=== PATIENT | female | born 1985 | race Caucasian/White ===

== ENCOUNTER → 2016-12-06 | Outpatient (CLI) | payer OTHER ==
[~2016-12-06] MED LIST: CLON1TAB3 PO; ETONMIS VAGRING; FLUO20CA36 PO; ZOLP5TAB6 PO
== END | disposition home or self-care (01) ==
LOC: C.LAB1850 14:40
PROVIDERS: ATTEND Obstetrics & Gynecology
DX: Z31.41 Encounter for fertility testing (principal)

== ENCOUNTER → 2017-02-08 | Outpatient (CLI) | payer OTHER | END | disposition home or self-care (01) | LOC: C.LAB 09:25 | PROVIDERS: ATTEND Obstetrics & Gynecology | DX: Z32.00 Encounter for pregnancy test, result unknown (principal) ==

== ENCOUNTER → 2017-02-12 | Outpatient (CLI) | payer OTHER | END | disposition home or self-care (01) | LOC: C.LABBC 10:09 | PROVIDERS: ATTEND Obstetrics & Gynecology | DX: O09.01 Supervision of pregnancy with history of infertility, first trimester (principal); Z3A.00 Weeks of gestation of pregnancy not specified ==

== ENCOUNTER → 2017-02-27 | Outpatient (CLI) | payer OTHER | END | disposition home or self-care (01) | LOC: C.LAB1850 16:22 | PROVIDERS: ATTEND Obstetrics & Gynecology | DX: O09.01 Supervision of pregnancy with history of infertility, first trimester (principal); O20.9 Hemorrhage in early pregnancy, unspecified ==

== ENCOUNTER → 2017-03-04 | Outpatient (CLI) | payer OTHER ==
[2017-03-04 16:40] LABS: URINE APPEARANCE CLEAR (CLEAR); URINE BILIRUBIN NEG (NEG); URINE COLOR YELLOW; URINE NITRITE NEG (NEG); URINE SPECIFIC GRAVITY 1.007 (1.000-1.030); UROBILINOGEN NEG (NEG)
[2017-03-04 16:44] LABS: MANUAL MICROSCOPIC REQUIRED? NO; REVIEW REQ? NO
== END | disposition home or self-care (01) ==
LOC: C.LABSPEC 15:40
PROVIDERS: ATTEND Obstetrics & Gynecology
DX: O09.01 Supervision of pregnancy with history of infertility, first trimester (principal)

== ENCOUNTER → 2017-03-19 | Outpatient (CLI) | payer OTHER ==
[2017-03-19 10:15] LABS: BASO % 0.3 %; BASO ABS # 0.03 K/uL (0-0.2); COMPLETE YES; EOS % 1.6 %; IG% 0.6 %; LYMPH ABS # 2.37 K/uL (1.2-3.4); MEAN CELL VOLUME 89.9 fL (80-100); MEAN CORPUSCULAR HEMOGLOBIN 30.3 pg (25-34); MEAN CORPUSCULAR HGB CONC 33.8 g/dl (32-36); MEAN PLATELET VOLUME 10.5 fL (7.4-10.4); MONO % 5.7 %; NEUT % 67.8 %; PLATELET COUNT 285 K/uL (130-400); RED BLOOD COUNT 4.45 M/uL (4.2-5.4); WHITE BLOOD COUNT 9.87 K/uL (4.8-10.8)
[2017-03-21 02:02] LABS: CHLAMYDIA TRACH RNA*** NOT DETECTED (NOT DETECTED); GC (NEIS GONORRHOEAE)RNA** NOT DETECTED (NOT DETECTED)
== END | disposition home or self-care (01) ==
LOC: C.LAB1850 09:11
PROVIDERS: ATTEND Obstetrics & Gynecology
DX: O09.01 Supervision of pregnancy with history of infertility, first trimester (principal)

== ENCOUNTER → 2017-05-06 | Outpatient (CLI) | payer OTHER ==
[2017-05-06 15:06] LABS: GTGD 50 Grams
== END | disposition home or self-care (01) ==
LOC: C.LAB1850 12:06
PROVIDERS: ATTEND Obstetrics & Gynecology
DX: O09.02 Supervision of pregnancy with history of infertility, second trimester (principal)

== ENCOUNTER → 2017-07-27 | Outpatient (CLI) | payer OTHER ==
[2017-07-27 12:54] LABS: HEMATOCRIT 37.9 % (37-47); HEMOGLOBIN 12.4 g/dL (12.0-16.0)
== END | disposition home or self-care (01) ==
LOC: C.LAB1850 10:05
PROVIDERS: ATTEND Obstetrics & Gynecology
DX: O09.03 Supervision of pregnancy with history of infertility, third trimester (principal)

== ENCOUNTER 2017-09-05 17:10 | Outpatient (CLI) | payer OTHER ==
[~2017-09-05] VITALS: Ht 170.2 cm; Wt 76.4 kg
[2017-09-05 17:47] LABS: BASO % 0.3 %; BASO ABS # 0.03 K/uL (0-0.2); EOS % 2.1 %; EOS ABS # 0.22 K/uL (0-0.5); HEMATOCRIT 35.8 % (37-47); HEMOGLOBIN 11.7 g/dL (12.0-16.0); IG# 0.09 K/uL (0.00-0.02); LYMPH % 22.8 %; LYMPH ABS # 2.43 K/uL (1.2-3.4); MEAN CORPUSCULAR HEMOGLOBIN 28.7 pg (25-34); MEAN CORPUSCULAR HGB CONC 32.7 g/dl (32-36); MEAN PLATELET VOLUME 9.7 fL (7.4-10.4); MONO % 7.7 %; MONO ABS # 0.82 K/uL (0.11-0.59); NEUT % 66.3 %; NEUT ABS # 7.07 K/uL (1.4-6.5); PLATELET COUNT 208 K/uL (130-400); RED CELL DISTRIBUTION WIDTH CV 13.6 % (11.5-14.5); RED CELL DISTRIBUTION WIDTH SD 44.1 fL (36.4-46.3); WHITE BLOOD COUNT 10.66 K/uL (4.8-10.8)
[2017-09-05] MEDS ORDERED: ACET-1256 PO (18:17)
[2017-09-05] MEDS ORDERED: DOXY25TA (18:17)
[2017-09-05] MEDS ORDERED: PRENTAB65 PO (18:17)
[2017-09-05 18:18] LABS: ALBUMIN 2.9 gm/dl (3.4-5.0); ALKALINE PHOSPHATASE 86 U/L (45-117); ALT/SGPT 17 U/L (12-78); AST/SGOT 16 U/L (15-37); BLOOD UREA NITROGEN 12 mg/dl (7-18); CALCIUM 8.9 mg/dl (8.5-10.1); CARBON DIOXIDE 21 mmol/L (21-32); CREATININE 0.47 mg/dl (0.60-1.20); GLUCOSE 77 mg/dl (70-99); POTASSIUM 3.6 mmol/L (3.5-5.1); SODIUM 136 mmol/L (136-145); TOTAL PROTEIN 6.7 gm/dl (6.4-8.2)
[2017-09-05 18:21] VITALS: Ht 170.2 cm; Wt 76.4 kg
== END 2017-09-05 19:05 | disposition home or self-care (01) ==
LOC: C.LD 17:10 → C.OPB 17:10
PROVIDERS: ATTEND Obstetrics & Gynecology
DX: O13.3 Gestational [pregnancy-induced] hypertension without significant proteinuria, third trimester (principal); Z3A.33 33 weeks gestation of pregnancy

== ENCOUNTER → 2017-09-09 | Outpatient (CLI) | payer OTHER ==
[~2017-09-09] MED LIST changes: +ACET-1256 PO; -CLON1TAB3 PO; +DOXY25TA; -ETONMIS VAGRING; -FLUO20CA36 PO; +PRENTAB65 PO; -ZOLP5TAB6 PO
[2017-09-09 12:12] LABS: HEMATOCRIT 35.6 % (37-47); HEMOGLOBIN 11.8 g/dL (12.0-16.0); MEAN CELL VOLUME 89.2 fL (80-100); MEAN CORPUSCULAR HEMOGLOBIN 29.6 pg (25-34); MEAN CORPUSCULAR HGB CONC 33.1 g/dl (32-36); MEAN PLATELET VOLUME 10.9 fL (7.4-10.4); PLATELET COUNT 211 K/uL (130-400); RED CELL DISTRIBUTION WIDTH CV 13.8 % (11.5-14.5); RED CELL DISTRIBUTION WIDTH SD 45.4 fL (36.4-46.3)
[2017-09-09 12:50] LABS: ALT/SGPT 14 U/L (12-78); AST/SGOT 14 U/L (15-37)
== END | disposition home or self-care (01) ==
LOC: C.LAB1850 10:56
PROVIDERS: ATTEND Obstetrics & Gynecology
DX: O13.9 Gestational [pregnancy-induced] hypertension without significant proteinuria, unspecified trimester (principal)

== ENCOUNTER → 2017-09-16 | Outpatient (CLI) | payer OTHER ==
[2017-09-16 12:19] LABS: HEMATOCRIT 38.8 % (37-47); HEMOGLOBIN 12.5 g/dL (12.0-16.0); MEAN CELL VOLUME 88.8 fL (80-100); MEAN CORPUSCULAR HEMOGLOBIN 28.6 pg (25-34); MEAN CORPUSCULAR HGB CONC 32.2 g/dl (32-36); MEAN PLATELET VOLUME 10.6 fL (7.4-10.4); PLATELET COUNT 228 K/uL (130-400); RED CELL DISTRIBUTION WIDTH CV 13.9 % (11.5-14.5); RED CELL DISTRIBUTION WIDTH SD 45.5 fL (36.4-46.3); WHITE BLOOD COUNT 9.15 K/uL (4.8-10.8)
[2017-09-16 12:43] LABS: ALBUMIN 2.8 gm/dl (3.4-5.0); ALKALINE PHOSPHATASE 97 U/L (45-117); ALT/SGPT 13 U/L (12-78); AST/SGOT 13 U/L (15-37); TOTAL PROTEIN 6.8 gm/dl (6.4-8.2)
== END | disposition home or self-care (01) ==
LOC: C.LAB1850 09:34
PROVIDERS: ATTEND Obstetrics & Gynecology
DX: O13.9 Gestational [pregnancy-induced] hypertension without significant proteinuria, unspecified trimester (principal)

== ENCOUNTER → 2017-09-23 | Outpatient (CLI) | payer OTHER ==
[2017-09-23 10:12] LABS: HEMATOCRIT 36.5 % (37-47); HEMOGLOBIN 12.1 g/dL (12.0-16.0); MEAN CORPUSCULAR HEMOGLOBIN 29.2 pg (25-34); MEAN CORPUSCULAR HGB CONC 33.2 g/dl (32-36); MEAN PLATELET VOLUME 10.3 fL (7.4-10.4); PLATELET COUNT 225 K/uL (130-400); RED CELL DISTRIBUTION WIDTH CV 14.1 % (11.5-14.5); RED CELL DISTRIBUTION WIDTH SD 45.7 fL (36.4-46.3); WHITE BLOOD COUNT 9.78 K/uL (4.8-10.8)
[2017-09-23 10:57] LABS: ALBUMIN 2.8 gm/dl (3.4-5.0); ALT/SGPT 15 U/L (12-78); BLOOD UREA NITROGEN 9 mg/dl (7-18); CALCIUM 9.4 mg/dl (8.5-10.1); CARBON DIOXIDE 23 mmol/L (21-32); CREATININE 0.54 mg/dl (0.60-1.20); GLUCOSE 73 mg/dl (70-99); POTASSIUM 4.2 mmol/L (3.5-5.1); SODIUM 139 mmol/L (136-145)
[2017-09-23 11:00] LABS: ALKALINE PHOSPHATASE 105 U/L (45-117); AST/SGOT 14 U/L (15-37); TOTAL PROTEIN 6.9 gm/dl (6.4-8.2)
== END | disposition home or self-care (01) ==
LOC: C.LAB1850 09:28
PROVIDERS: ATTEND Obstetrics & Gynecology
DX: O09.03 Supervision of pregnancy with history of infertility, third trimester (principal); O13.9 Gestational [pregnancy-induced] hypertension without significant proteinuria, unspecified trimester

== ENCOUNTER 2017-09-27 12:46 | Outpatient (CLI) | payer OTHER ==
[~2017-09-27] VITALS: Ht 160 cm; Wt 78.0 kg
[2017-09-27 14:36] VITALS: Ht 160 cm; Wt 78.0 kg
== END 2017-09-27 14:19 | disposition home or self-care (01) ==
LOC: C.OPB 12:46 → C.LD 12:47 → C.OPB 14:19
PROVIDERS: ATTEND Obstetrics & Gynecology
DX: Z34.03 Encounter for supervision of normal first pregnancy, third trimester (principal)

== ENCOUNTER 2017-09-29 18:47 | Outpatient (CLI) | payer OTHER | END 2017-09-29 19:43 | disposition home or self-care (01) | LOC: C.LD 18:47 → C.OPB 18:47 | PROVIDERS: ATTEND Obstetrics & Gynecology | DX: O13.3 Gestational [pregnancy-induced] hypertension without significant proteinuria, third trimester (principal); Z3A.37 37 weeks gestation of pregnancy ==

== ENCOUNTER 2017-09-30 07:31 | Inpatient (IN) | payer OTHER ==
[~2017-09-30] VITALS: Ht 170.2 cm; Wt 78.0 kg
[2017-09-30] MEDS ORDERED: LACTATED RINGER'S 1000ML 1,000 ML IV PRN (08:05)
[2017-09-30] MEDS ORDERED: LACTATED RINGER'S 1000ML 500 ML IV PRN ×2 (08:05→11:23)
[2017-09-30] MEDS ORDERED: LACTATED RINGER'S 1000ML 1,000 ML IV SCH (08:05)
[2017-09-30] MEDS ORDERED: OXYTOCIN 30 UNITS/500ML NSS IV PRN ×2 (08:15→12:00)
[2017-09-30 08:27] LABS: HEMOGLOBIN 11.5 g/dL (12.0-16.0); MEAN CELL VOLUME 86.4 fL (80-100); MEAN CORPUSCULAR HEMOGLOBIN 28.4 pg (25-34); MEAN CORPUSCULAR HGB CONC 32.9 g/dl (32-36); MEAN PLATELET VOLUME 10.1 fL (7.4-10.4); PLATELET COUNT 210 K/uL (130-400); RED CELL DISTRIBUTION WIDTH CV 14.2 % (11.5-14.5); RED CELL DISTRIBUTION WIDTH SD 44.7 fL (36.4-46.3); WHITE BLOOD COUNT 9.66 K/uL (4.8-10.8)
[2017-09-30 08:44] LABS: ALBUMIN 2.7 gm/dl (3.4-5.0); ALT/SGPT 14 U/L (12-78); BLOOD UREA NITROGEN 10 mg/dl (7-18); CALCIUM 8.7 mg/dl (8.5-10.1); CARBON DIOXIDE 19 mmol/L (21-32); CREATININE 0.66 mg/dl (0.60-1.20); GLUCOSE 106 mg/dl (70-99); POTASSIUM 3.4 mmol/L (3.5-5.1); SODIUM 138 mmol/L (136-145)
[2017-09-30 08:47] LABS: ALKALINE PHOSPHATASE 107 U/L (45-117); AST/SGOT 14 U/L (15-37); TOTAL PROTEIN 6.4 gm/dl (6.4-8.2)
[2017-09-30 08:48] VITALS: Ht 170.2 cm; Wt 78.0 kg
[2017-09-30] MEDS ORDERED: FENTANYL CITRATE INJ 50 MCG/1 ML 2 ML VIAL ONE (10:36)
[2017-09-30] MEDS ORDERED: FENTANYL 2MCG/ML ROPIV 1.25MG/ML 100ML BAG EPI ONE (10:36)
[2017-09-30] MEDS ORDERED: EpHEDrine SULFATE INJ 50 MG/ML AMP ONE (10:36)
[2017-09-30] MEDS ORDERED: BUPIVACAINE 0.25% 30 ML VIAL ONE (10:36)
[2017-09-30] MEDS ORDERED: NALOXONE HCL INJ 1 MG in SODIUM CHLORIDE 0.9% 1000ML 1,000 ML IV PRN (11:23)
[2017-09-30] MEDS ORDERED: DiphenhydrAMINE HCL 50 MG/ML VIAL IV PRN (11:30)
[2017-09-30] MEDS ORDERED: ONDANSETRON INJ 2 MG/ML 2 ML VIAL IV PRN (11:30)
[2017-09-30] MEDS ORDERED: NALOXONE HCL INJ 0.4 MG/1 ML VIAL/CARP IV PRN (11:30)
[2017-09-30] MEDS ORDERED: EpHEDrine SULFATE INJ 50 MG/ML AMP IV PRN (11:30)
[2017-09-30] MEDS ORDERED: NALBUPHINE HCL INJ 10 MG/ML AMP IV PRN (11:30)
[2017-09-30] MEDS ORDERED: FENTANYL 2MCG/ML ROPIV 1.25MG/ML 100ML BAG EPI PRN (11:30)
[2017-09-30] MEDS ORDERED: BENZOCAINE 20% AER SPR 82.5 GM CAN EXT PRN (12:00)
[2017-09-30] MEDS ORDERED: HYDROCORTISONE ACETATE 25 MG SUPP PR PRN (12:00)
[2017-09-30] MEDS ORDERED: LANOLIN OINT EXT PRN (12:00)
[2017-09-30] MEDS ORDERED: SUPERCREAM 0.870 % 15GM JAR EXT PRN (12:00)
[2017-09-30] MEDS ORDERED: ACETAMINOPHEN/CODEINE 300/30MG TAB PO PRN ×2 (12:00)
--- NOTE | 2017-09-30 12:08 | DELIVERY SUMMARY ---
DATE OF OPERATION: 09/30/2017 The patient dilated to complete and pushed to deliver a viable female infant, Apgars 8 and 9 via over second degree perineal laceration. Mouth and nose were bulb suctioned at the perineum. Shoulders and body were delivered with ease. The infant was vigorous and crying at . Cord was clamped at 30 seconds of life and infant placed in the maternal abdomen where the cord was then doubly clamped and cut. Placenta was delivered spontaneously and intact, 3-vessel cord. Hemostasis achieved with dilute Pitocin and uterine massage. Cervix and sulci intact. Laceration repaired in usual fashion using 3-0 Vicryl. Mother and baby stable in recovery. EBL 300 mL. I attest to the content of the Intraoperative Record and any orders documented therein. Any exception s are noted below.
[2017-09-30] MEDS ORDERED: OXYTOCIN INJ 20 UNITS in LACTATED RINGER'S 1000ML 1,000 ML IV SCH (12:30)
--- NOTE | 2017-09-30 14:59 | Anesthesia Procedure Note ---
Anesthesia Epidural Removal Nt Date & Time Sep 30, 2017 at 14:58 Vital Signs Pain Intensity: 2 Notes Mental Status: alert / awake / arousable, participated in evaluation Nausea / Vomiting: adequately controlled Pain: adequately controlled Airway Patency, RR, SpO2: stable & adequate BP & HR: stable & adequate Hydration State: stable & adequate Neuraxial Anesthesia: was administered Anesthetic Complications: no major complications apparent, pt satisfied with anesthetic care Epidural: removed without complications, with tip intact
[2017-09-30 15:00] VITALS: BP 126/89; PULSE 97; TEMP 37.6
[2017-09-30] MEDS: IBUPROFEN 600 MG TAB PO PRN ×3 (15:26→23:55)
[2017-09-30 19:05] VITALS: BP 128/80; PULSE 95; TEMP 37.3
[2017-09-30] MEDS: DOCUSATE SODIUM 100 MG CAP PO SCH (19:16)
[2017-10-01 00:01] VITALS: BP 121/84; PULSE 87; TEMP 36.7
[2017-10-01 04:45] VITALS: BP 116/79; PULSE 77; TEMP 36.7
[2017-10-01] MEDS: IBUPROFEN 600 MG TAB PO PRN ×4 (05:01→22:27)
--- NOTE | 2017-10-01 06:56 | Progress Note ---
Subjective Oct 01, 2017. Subjective conversation w/ patient, conversation w/ family, physical exam, chart review, lab review Ambulation: ambulating normally Voiding: no voiding problems Passing Gas: Yes Diet Tolerance: Regular Diet Lochia: Moderate Feeding Type: Breast Feeding Review of Systems Constitutional: No fever, No chills Respiratory: No cough, No shortness of breath Cardiac: No chest pain Abdomen: No pain, No nausea, No vomiting Female : No dysuria Objective Vital Signs Date Time Temp Pulse Resp B/P (MAP) Pulse Ox O2 Delivery O2 Flow Rate FiO2 10/01/17 04:45 36.7 77 20 116/79 (91) Room Air 10/01/17 00:01 36.7 87 20 121/84 (96) Room Air 10/01/17 00:01 Room Air 09/30/17 19:05 37.3 95 18 128/80 (96) Room Air 09/30/17 15:00 Room Air 09/30/17 15:00 37.6 97 18 126/89 (101) Room Air Physical Exam General Appearance: WELL-APPEARING, WD/WN, NO APPARENT DISTRESS Respiratory/Chest: lungs clear, no respiratory distress Cardiovascular: regular rate, rhythm, no murmur Abdomen: non tender, soft Fundus: Firm, Relation to Umbilicus (1cm below ) Extremities: non-tender, normal inspection Laboratory Results Last 24 Hours Test 09/30/17 08:14 10/01/17 04:44 White Blood Count 9.66 K/uL Red Blood Count 4.05 M/uL Hemoglobin 11.5 g/dL Hematocrit 35.0 % Mean Corpuscular Volume 86.4 fL Mean Corpuscular Hemoglobin 28.4 pg Mean Corpuscular Hemoglobin Concent 32.9 g/dl RDW Standard Deviation 44.7 fL RDW Coefficient of Variation 14.2 % Platelet Count 210 K/uL Mean Platelet Volume 10.1 fL Sodium Level 138 mmol/L Potassium Level 3.4 mmol/L Chloride Level 108 mmol/L Carbon Dioxide Level 19 mmol/L Anion Gap 12.0 mmol/L Blood Urea Nitrogen 10 mg/dl Creatinine 0.66 mg/dl Estimated GFR () 136.4 Estimated GFR (Non- 117.7 BUN/Creatinine Ratio 15.2 Random Glucose 106 mg/dl Calcium Level 8.7 mg/dl Total Bilirubin 0.2 mg/dl Aspartate Amino Transf (AST/SGOT) 14 U/L Alanine Aminotransferase (ALT/SGPT) 14 U/L Alkaline Phosphatase 107 U/L Total Protein 6.4 gm/dl Albumin 2.7 gm/dl Globulin 3.7 gm/dl Albumin/Globulin Ratio 0.7 Medications Current Inpatient Medications Medications (Trade) Dose Ordered Sig/Megan Route Start Time Stop Time Status Last Admin Dose Admin Oxytocin (Pitocin IV) 30 units UD PRN IV 09/30/17 12:00 10/30/17 11:59 Benzocaine (Dermoplast Aero Spr) 1 appln PRN PRN EXT 09/30/17 12:00 10/30/17 11:59 09/30/17 16:59 1 APPLN Cocaine HCl (Supercream 0.870% Cr) BID PRN EXT 09/30/17 12:00 10/14/17 11:59 Hydrocortisone Acetate (Anusol Hc Supp) 25 mg BID PRN SD 09/30/17 12:00 10/30/17 11:59 Lanolin (Lanolin Oint) PRN PRN EXT 09/30/17 12:00 10/30/17 11:59 Prenat Multivit/ Electromyographic Technician/Iron/Folic Ac ( Vitamin Tab) 1 tab DAILY PO 10/01/17 08:00 10/31/17 07:59 Ibuprofen (Motrin Tab) 600 mg Q4H PRN PO 09/30/17 12:00 10/30/17 11:59 10/01/17 05:01 600 MG Acetaminophen (Tylenol Tab) 650 mg Q6H PRN PO 09/30/17 12:00 10/30/17 11:59 Acetaminophen/ Codeine Phosphate (Tylenol w/ Codeine #3 Tab) 1 tab Q4H PRN PO 09/30/17 12:00 10/30/17 11:59 Acetaminophen/ Codeine Phosphate (Tylenol w/ Codeine #3 Tab) 2 tab Q4H PRN PO 09/30/17 12:00 10/30/17 11:59 Docusate Sodium (coLACE CAP) 100 mg BID PO 09/30/17 20:00 10/30/17 19:59 09/30/17 19:16 100 MG Assessment and Plan Post- Day#: 1 Continue Routine Care: 32 F, , A+/GBS-/RI, h/o gestational HTN, PPD1. Vitals reviewed, WNL. Patient is doing clinically well. No signs or sx of anemia. Plan; 1. Recovery from vaginal delivery; cont pp care; ambulate, encourage BF, monitor lochia, control pain Resident Physician Supervision Note: I was present with Dr. Greene during the history and exam. I discussed the case with the resident and agree with the findings and plan as documented in the note. Any exceptions or clarifications are listed here: Doing well. Routine care. Bps are normal. Documented By: Ness Olvera
[2017-10-01 07:18] VITALS: BP 99/79; PULSE 76; TEMP 37
[2017-10-01] MEDS: DOCUSATE SODIUM 100 MG CAP PO SCH ×2 (08:24→19:34)
[2017-10-01] MEDS: PRENATAL VITAMIN TAB PO SCH (08:24)
[2017-10-01 09:08] LABS: HEMATOCRIT 29.5 % (37-47); HEMOGLOBIN 9.7 g/dL (12.0-16.0)
[2017-10-01 11:10] VITALS: BP 134/84; PULSE 92; TEMP 37.1; O2SAT 97
[2017-10-01] MEDS: ACETAMINOPHEN 325 MG TAB PO PRN ×2 (12:24→19:37)
[2017-10-01 15:45] VITALS: BP 127/89; PULSE 92; TEMP 37
[2017-10-01 23:25] VITALS: BP 116/72; PULSE 82; TEMP 36.8
[2017-10-02] MEDS: IBUPROFEN 600 MG TAB PO PRN ×2 (04:56→10:53)
--- NOTE | 2017-10-02 06:09 | Discharge Instructions ---
Discharge Instructions Date of Service Oct 02, 2017. Admission Reason for Admission: Induction Discharge Discharge Diagnosis / Problem: vaginal delivery Discharge Goals Goal(s): Routine recovery after delivery Medications Continue Dispensed Medications: supercream, dermaplast, tucks, lansinoh Activity Recommendations Activity Limitations: per Instructions/Follow-up section . Instructions / Follow-Up Instructions / Follow-Up ACTIVITY RECOMMENDATIONS: * Gradual return to full activity over the next 2-3 weeks. * No lifting - nothing heavier than baby over the next 2-3 weeks. * Do not engage in vigorous exercise, sexual activity or sports until cleared by your physician. * Do not drive or operate any motorized equipment until cleared by your physician. * You may shower/bathe daily. MEDICATIONS: For discomfort or pain, you may use Acetaminophen (Tylenol), Ibuprofen (Advil), or Naproxen (Aleve) following the package directions. For constipation you may use Colace following the package directions. BREAST CARE: If you are not breast feeding: * Wear a supportive bra 24 hours a day for one to two weeks. * Avoid stimulating your breasts and nipples as much as possible during the first few weeks after delivery. * When taking a shower, have the warm water hit your back, not breasts. * When your breasts feel full, apply ice packs. Usually three to four times a day helps ease the discomfort. * Take a mild pain medication (Tylenol / Motrin) when you are uncomfortable. If breast feeding: * Use breast milk to lubricate nipples. Lansinoh cream may be used for sore nipples. You do not need to remove cream prior to breast feeding. If using a different brand of cream, check the label for directions regarding removal of cream prior to nursing. * Wear a supportive bra. * If having problems with breasts or breast feeding, call a distributed energy systems consultant or your health care provider. EPISIOTOMY CARE: After delivery, if you have an episiotomy (stitches), the following steps will ease discomfort and aid healing. * For the first 24 hours after delivery, place ice packs next to your episiotomy to help reduce swelling. * After the first 24 hour-period, sitz baths, either portable or in the tub, are suggested. A shower with a shower arm sprayed over the episiotomy may be comforting. * Jolie care should be done after each voiding and bowel movement. Squirt warm water from a plastic bottle over the perineum (region of the body between the anus and urinary opening) and pat dry. * Use Dermoplast to ease discomfort. Shake container. [place] directly over the episiotomy. Place a Tucks on a clean sanitary pad next to your episiotomy. SPECIAL CARE INSTRUCTIONS: When you are discharged from the hospital, it is important for you to follow the instructions listed below: * During the first week at home, you should be able to care for yourself and your baby. In addition, the usual light household activities are encouraged. * Limit your activities to the way you feel. Do not try to clean the house or move furniture. Be sensible. * If you actively engage in sports and have done so up until the time of your delivery, you may resume these activities as soon as you feel able. This may take up to one month or even longer. Use good judgment. * Continue to take your vitamins for at least six weeks after the of your baby. * Your diet need not be limited unless you were on a special diet before your delivery. Breast-feeding mothers need around 2500 calories per day and at least 64-80 ounces of fluid per day (8 to 10 glasses). * You should eat foods from the four major food groups. Crash diets or fad diets are to be avoided. Eating lean meats, fresh fruits and vegetables, low-fat dairy products, high fiber foods and a regular exercise program, will help you get back to your pre- weight without putting your health at risk. * Constipation is sometimes a problem after delivery. Take a mild laxative as needed. If breast feeding, Milk of Magnesia is acceptable to use. You may use a suppository or Fleets enema if no episiotomy. * A daily shower or tub bath is suggested. Be sure to thoroughly and gently dry the perineum. * A bloody vaginal discharge will usually continue until around four weeks post . A small amount of bleeding may continue for as long as six weeks. Vaginal discharge changes from the bright red bleeding after delivery to pink then brownish and finally yellowish-pink before becoming white and disappearing. * Bleeding may increase with activity. Your first period may come in 4-8 weeks. If you are breast feeding, your period may be delayed even longer. * Dewy Rose (sex) can begin whenever both you and your partner feel comfortable and do not have any form of genital infection. It is recommended that you wait at least six weeks for internal and external healing to occur. If you have questions, please talk to your health care practitioner. A condom should be used to prevent infection and . * Foreplay, gentle intercourse and lubrication is very important the first several times to prevent pain. A water-based lubricant such as K-Y jelly or Astroglide may be used. * If you have RH negative blood and your baby is RH positive, you will receive RHOGAM by injection prior to discharge. The nurse will give you a card to keep with you that has the date and place that you received RHOGAM after delivery. * During your care, you had a Rubella screen done to check for the presence of rubella antibodies in your blood. If your test was negative, you will receive a Rubella vaccine prior to discharge. This vaccine may cause a fever, soreness at the injection site and flu-like symptoms. If these symptoms persist, notify your health care practitioner. is not advised for one month after a Rubella vaccine. * Verbalizes understanding of car seat law as reviewed with patient nursing. * Car Seat hand-out given and reviewed with patient by nursing. * Shaken baby information reviewed with patient by nursing. Call you doctor if: * Heavy bleeding (saturating several pads an hour) or passing clots the size of your fist. * A fever >101 degrees F (38.3 degrees C) on two occasions four hours apart and /or chills. * Unusual pain in the pelvic or vaginal areas. * "Baby Blues" lasting longer than two weeks. If you have any questions or concerns, call your health care practitioner at . FOLLOW UP VISIT: * Please call the office at to schedule a 6 week examination. It is important you keep this appointment. It is important for you to make arrangements for either yearly or twice yearly check-ups thereafter. Current Hospital Diet Patient's current hospital diet: Regular Diet Discharge Diet Recommended Diet: Regular Diet, Regular OB Diet Pending Studies Studies pending at discharge: no Medical Emergencies . Who to Call and When: Medical Emergencies: If at any time you feel your situation is an emergency, please call 911 immediately. . Non-Emergent Contact Non-Emergency issues call your: Primary Care Provider, Product Safety Administrator . . "Provider Documentation" section prepared by Anders Greene. .
--- NOTE | 2017-10-02 06:41 | Progress Note ---
Subjective Oct 02, 2017. Subjective conversation w/ patient, conversation w/ family, physical exam, chart review, lab review Ambulation: ambulating normally Voiding: no voiding problems Passing Gas: Yes Diet Tolerance: Regular Diet Lochia: Small Feeding Type: Breast Feeding (having trouble with breast feeding, supplementing ) Review of Systems Constitutional: No fever, No chills Respiratory: No cough, No shortness of breath Cardiac: No chest pain Abdomen: No pain, No nausea, No vomiting Female : No dysuria Objective Vital Signs Date Time Temp Pulse Resp B/P (MAP) Pulse Ox O2 Delivery O2 Flow Rate FiO2 10/01/17 23:25 Room Air 10/01/17 23:25 36.8 82 18 116/72 (87) Room Air 10/01/17 15:45 Room Air 10/01/17 15:45 37.0 92 16 127/89 (102) Room Air 10/01/17 11:10 37.1 92 18 134/84 (101) 97 Room Air 10/01/17 08:44 Room Air 10/01/17 07:55 Room Air 10/01/17 07:18 37.0 76 16 99/79 (86) Room Air Physical Exam General Appearance: WELL-APPEARING, WD/WN, NO APPARENT DISTRESS Respiratory/Chest: lungs clear, no respiratory distress Cardiovascular: regular rate, rhythm, no murmur Abdomen: non tender, soft Fundus: Firm, Relation to Umbilicus (2cm below u) Extremities: non-tender, normal inspection Laboratory Results Last 24 Hours Test 10/01/17 08:19 10/02/17 04:44 Hemoglobin 9.7 g/dL Hematocrit 29.5 % Medications Current Inpatient Medications Medications (Trade) Dose Ordered Sig/Megan Route Start Time Stop Time Status Last Admin Dose Admin Oxytocin (Pitocin IV) 30 units UD PRN IV 09/30/17 12:00 10/30/17 11:59 Benzocaine (Dermoplast Aero Spr) 1 appln PRN PRN EXT 09/30/17 12:00 10/30/17 11:59 09/30/17 16:59 1 APPLN Cocaine HCl (Supercream 0.870% Cr) BID PRN EXT 09/30/17 12:00 10/14/17 11:59 Hydrocortisone Acetate (Anusol Hc Supp) 25 mg BID PRN [place] 09/30/17 12:00 10/30/17 11:59 Lanolin (Lanolin Oint) PRN PRN EXT 09/30/17 12:00 10/30/17 11:59 Prenat Multivit/ Metal Fabricating Inspector/Iron/Folic Ac ( Vitamin Tab) 1 tab DAILY PO 10/01/17 08:00 10/31/17 07:59 10/01/17 08:24 1 TAB Ibuprofen (Motrin Tab) 600 mg Q4H PRN PO 09/30/17 12:00 10/30/17 11:59 10/02/17 04:56 600 MG Acetaminophen (Tylenol Tab) 650 mg Q6H PRN PO 09/30/17 12:00 10/30/17 11:59 10/01/17 19:37 650 MG Acetaminophen/ Codeine Phosphate (Tylenol w/ Codeine #3 Tab) 1 tab Q4H PRN PO 09/30/17 12:00 10/30/17 11:59 Acetaminophen/ Codeine Phosphate (Tylenol w/ Codeine #3 Tab) 2 tab Q4H PRN PO 09/30/17 12:00 10/30/17 11:59 Docusate Sodium (coLACE CAP) 100 mg BID PO 09/30/17 20:00 10/30/17 19:59 10/01/17 19:34 100 MG Assessment and Plan Post- Day#: 2 Continue Routine Care: Resident Physician Supervision Note: I interviewed and examined the patient. Discussed with Dr. Greene and agree with findings and plan as documented in the note. Any exceptions or clarifications are listed here: [None] Documented By: Shahnaz Bro Thuy 32 F, , A+/GBS-/RI, h/o gestational HTN, PPD2. Vitals reviewed, WNL. Patient is doing clinically well. No signs or sx of anemia. Plan; 1. Recovery from vaginal delivery; cont pp care; ambulate, encourage BF, monitor lochia, control pain 2. Discussed discharge planning
[2017-10-02] MEDS: PRENATAL VITAMIN TAB PO SCH (08:29)
[2017-10-02] MEDS: DOCUSATE SODIUM 100 MG CAP PO SCH (08:29)
[2017-10-02] MEDS: ACETAMINOPHEN 325 MG TAB PO PRN (08:34)
[2017-10-02 08:35] VITALS: BP 125/87; PULSE 90; TEMP 37; O2SAT 97
[2017-10-02 08:37] LABS: HEMATOCRIT 29.5 % (37-47); HEMOGLOBIN 9.5 g/dL (12.0-16.0); MEAN CELL VOLUME 87.3 fL (80-100); MEAN CORPUSCULAR HEMOGLOBIN 28.1 pg (25-34); MEAN CORPUSCULAR HGB CONC 32.2 g/dl (32-36); MEAN PLATELET VOLUME 9.8 fL (7.4-10.4); PLATELET COUNT 183 K/uL (130-400); RED CELL DISTRIBUTION WIDTH CV 14.4 % (11.5-14.5); RED CELL DISTRIBUTION WIDTH SD 45.6 fL (36.4-46.3); WHITE BLOOD COUNT 9.21 K/uL (4.8-10.8)
[2017-10-02 11:40] VITALS: BP_DIAS 87; PULSE 90; TEMP 37
== END 2017-10-02 13:00 | disposition home or self-care (01) | DRG 775 ==
LOC: C.LD 07:31 → EDSTATUS 15:28 → C.OBG 16:36
PROVIDERS: ADMIT Obstetrics & Gynecology; ATTEND Obstetrics & Gynecology
PROC: 3E033VJ Introduction of Other Hormone into Peripheral Vein, Percutaneous Approach (ICD-10-PCS; principal; 2017-09-30)
PROC: 10E0XZZ Delivery of Products of Conception, External Approach (ICD-10-PCS; principal; 2017-09-30)
PROC: 0KQM0ZZ Repair Perineum Muscle, Open Approach (ICD-10-PCS; principal; 2017-09-30)
DX: O13.4 Gestational [pregnancy-induced] hypertension without significant proteinuria, complicating childbirth (principal); O70.1 Second degree perineal laceration during delivery; Z3A.37 37 weeks gestation of pregnancy; Z37.0 Single live birth

== ENCOUNTER → 2017-10-31 | Outpatient (CLI) | payer OTHER | END | disposition home or self-care (01) | LOC: C.LABSPEC 11:07 | PROVIDERS: ATTEND Obstetrics & Gynecology | DX: R39.9 Unspecified symptoms and signs involving the genitourinary system (principal) ==

== ENCOUNTER 2021-05-23 12:04 | Inpatient (IN) ==
--- NOTE | 2021-05-23 12:40 | Obstetrical Progress Note ---
Date of Service May 23, 2021 Assessment & Plan (1) Encounter for supervision of normal in multigravida: (2) History of gestational hypertension: Plan: 35 y/o presents for r/o labor BPs initially elevated, suspect due to pain but given hx will obtain labs as asymptomatic otherwise Fetus cat 1 Labor - small amt cervical change from this AM, will ambulate and recheck GBS neg Subjective 35 y/o at 39 3/7 wga w/ JUSTIN 12/4 presents w/ c/o ctx. Seen in clinic this AM for TOM, noted q4-7min ctx and got membranes stripped. Since then, ctx have worsened. +FM, denies LOF. Notes some blood with wiping just now in toilet but none otherwise PNI: Hx gHTN Echogenic bowel on our anatomy but resolved at [facility] Conceived on Letrozole Physical Exam Genitourinary: Manual OB Exam: + cervical dilation (3-4), + cervical effacement 70% and + station -2 OB Exam Monitor Tracing: + external FHT monitor used, + external uterine monitor used (q4) and + category I (125/mod/+accel/-decel) Results & Data ([facility]) Vital Signs (Past 12 Hours) Vital Signs Pulse BP 05/23/21 12:23 107 H 142/92 H 05/23/21 12:11 111 H 147/97 H PG Care Time/CCT Total # of Minutes Spent Total Time Spent with Patient: Total time spent is greater than 50% in coordination of care (as documented) at patient's floor/unit and/or counseling patient: Coding Level of Care Code None Diagnoses Encounter for supervision of normal in multigravida Z34.80 History of gestational hypertension Z87.59
[2021-05-23 12:52] LABS: Basophils # (auto) 0.04 K/uL (0-0.2); Basophils % (auto) 0.3 %; Eosinophils # (auto) 0.06 K/uL (0-0.5); Eosinophils % (auto) 0.4 %; Hematocrit (blood only) 39.4 % (37-47); Hemoglobin 13.2 g/dL (12.0-16.0); Immature Granulocytes # (auto) 0.15 K/uL (0.00-0.02); Immature Granulocytes % (auto) 1.1 %; Lymphocytes # (auto) 1.96 K/uL (1.2-3.4); Lymphocytes % (auto) 14.5 %; Mean Corpuscular Hemoglobin 30.2 pg (25-34); Mean Corpuscular Hgb Conc 33.5 g/dL (32-36); Mean Corpuscular Volume 90.2 fL (80-100); Mean Platelet Volume 10.5 fL (7.4-10.4); Monocytes # (auto) 0.66 K/uL (0.11-0.59); Monocytes % (auto) 4.9 %; Neutrophils # (auto) 10.61 K/uL (1.4-6.5); Neutrophils % (auto) 78.8 %; Platelet Count 202 K/uL (130-400); RDW Standard Deviation 46.5 fL (36.4-46.3); Red Blood Count 4.37 M/uL (4.2-5.4); White Blood Count 13.48 K/uL (4.8-10.8)
[2021-05-23 13:19] LABS: Alanine Aminotransferase 15 U/L (12-78); Albumin Level 3.1 gm/dl (3.4-5.0); Aspartate Aminotransferase 10 U/L (15-37); BUN Creatinine Ratio 15.8 (10-20); Blood Urea Nitrogen 6 mg/dl (7-18); Calcium 9.1 mg/dl (8.5-10.1); Carbon Dioxide 17 mmol/L (21-32); Chloride 110 mmol/L (98-107); Creatinine Clr Calc Pharmacy 196.3 ml/min; Est GFR (African American) > 150.0 ml/min; Est GFR (Non-African American) 135.9 ml/min; Glucose 77 mg/dl (70-99); Potassium 3.6 mmol/L (3.5-5.1); Sodium 138 mmol/L (136-145)
[2021-05-23 13:22] LABS: Albumin Globulin Ratio 0.7 (0.9-2); Alkaline Phosphatase 116 U/L (45-117); Bilirubin,Total 0.3 mg/dl (0.2-1); Globulin 4.2 gm/dl (2.5-4.0); Total Protein 7.3 gm/dl (6.4-8.2)
[2021-05-23] MEDS ORDERED: OXYTOCIN 10 UNITS/ML VIAL ONE (14:20)
[2021-05-23] MEDS ORDERED: LIDOCAINE 1% LOCAL 20 ML VIAL ONE (14:27)
[2021-05-23] MEDS ORDERED: LACTATED RINGER'S 1,000 ML IV PRN (14:29)
[2021-05-23] MEDS ORDERED: OXYTOCIN 30 UNITS/500 ML BAG IV PRN (14:29)
--- NOTE | 2021-05-23 14:51 | History & Physical Report ---
Date of Service May 23, 2021 Assessment & Plan (1) Encounter for supervision of normal in multigravida: Plan: 35 y/o in labor VSS Fetus cat 1 Labor - GBS neg Admission and Anticipated Discharge Date Admission Date: May 23, 2021 History of Present Illness Chief Complaint: Contractions Primary Care Provider: Sheila Joshi, DO 35 y/o at 39 3/7 wga w/ JUSTIN 12/4 presents w/ c/o ctx. Seen in clinic th is AM for TOM, noted q4-7min ctx and got membranes stripped. Since then, ctx have worsened. +FM, denies LOF. 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 , IOL gHTN G2 2020 SAB G3 current irreg cycles Denies hx STIs 10/2020 neg cytology Allergies Allergy/AdvReac Type Severity Reaction Status Date / Time No Known Drug Allergies Allergy Verified 05/23/21 08:47 Home Medications Medication Instructions Recorded Confirmed Type prenat.vits,yohannes,duo-ozap-vfkho 1 tab PO DAILY 02/11/19 05/23/21 History doxylamine-pyridoxine (vit B6) PO 10/28/20 05/23/21 History [Bonjesta] aspirin 81 mg tablet,delayed 81 mg PO DAILY 12/28/20 05/23/21 History release (Aspirin Low Dose) ferrous sulfate PO 03/23/21 05/23/21 History Patient History Medical History (Updated 02/17/21 @ 08:38 by James Park MD) Anxiety Astigmatism Gestational [-induced] hypertension without significant proteinuria, third trimester Mastitis Situational hypertension Varicella Surgical History H/O cervical biopsy H/O oral surgery Family History Sister Anxiety Depression Adela's thyroiditis Father Dementia Mother Hypertension Denies family history of Ovarian cancer Prostate cancer Myocardial infarction Breast cancer Colorectal cancer Social History (Updated 10/28/20 @ 15:15 by Peace Long) Smoking Status: Never smoker Second Hand Exposure: No; Hx Alcohol Use: Yes Hx Substance Use: No Preferred Language: Kyrgyz Visual Impairment: No Limitations Hearing Ability: Normal Multigraph Operator Required: No Beliefs That Will Affect Care: None marital status: marital status details: Johnathon Doran (35) [phone] Current Living Situation: Spouse Current Living Situation Comment: lives with spouse and daughter current occupational status: employed current occupation: [employer]-u[employer] Feels Safe at Home: Yes Safety Concerns: Feels Safe At This Time Dental Care, Regularly: Yes Physical Activity Frequency: Does not Exercise Assistive Devices: None Physical Exam Genitourinary: Manual OB Exam: + cervical dilation (progressed from 4 to 10) OB Exam Monitor Tracing: + external FHT monitor used, + external uterine monitor used (q4) and + category I (120/mod/+accel/-decel) Results & Data ([facility]) Vital Signs (Past 12 Hours) Vital Signs Temp Pulse BP 05/23/21 14:44 87 121/85 05/23/21 12:53 105 H 124/85 05/23/21 12:43 108 H 128/83 05/23/21 12:33 91 H 125/79 05/23/21 12:25 98.4 F 05/23/21 12:23 107 H 142/92 H 05/23/21 12:11 111 H 147/97 H Laboratory Results OB Labs: Blood Type A Positive 11/04/20 Antibody Screen NEGATIVE 11/04/20 Hemoglobin 11.7 g/dL (12.0-16.0) L 03/07/21 Hematocrit 35.6 % (37-47) L 03/07/21 Mean Corpuscular Volume 88.7 fL (80-100) 11/04/20 Platelet Count 261 K/uL (130-400) 11/04/20 Varicella-Zoster IgG Antibody 146.10 index L 08/10/20 Rubella IgG Antibody Immune (Immune) 11/04/20 Rapid Plasma Reagin Nonreactive (Nonreactive) 11/04/20 Hepatitis B Surface Antigen Neg (Neg) 11/04/20 HIV (1&2) Ab and P24 Ag, 4th Gener Neg (Neg) 11/04/20 Glucose 1 Hour 50 gm Load 133 mg/dl (70-130) H 03/07/21 OB Optional Labs: Chlamydia trachomatis RNA NOT DETECTED (NOT DETECTED) 11/04/20 Neisseria gonorrhoeae RNA NOT DETECTED (NOT DETECTED) 11/04/20 Thyroid Stimulating Hormone (TSH) 1.780 uIu/ml (0.300-4.500) 08/10/20 low risk cfdna neg cf/sma Code Status & VTE Plan VTE Prophylaxis Plan VTE Prophylaxis will be ordered: No Coding Level of Care Code None Diagnoses Encounter for supervision of normal in multigravida Z34.80
--- NOTE | 2021-05-23 14:55 | Delivery Summary ---
Vaginal Delivery Summary Date of Service May 23, 2021 Vaginal Delivery Summary and 2nd Degree LAC PREOPERATIVE DIAGNOSIS: 1. Single intrauterine at 39 3/7 wga 2. Labor 3. History of gestational hypertension POSTOPERATIVE DIAGNOSIS: 1. Single intrauterine at 39 3/7 wga 2. Labor 3. History of gestational hypertension 4. Delivered PROCEDURE: 1. Normal spontaneous vaginal delivery. SURGEON: Britt Robles MD ANESTHESIA: None ESTIMATED BLOOD LOSS: 200 mL FLUIDS: Continuous LR. URINE OUTPUT: None. COMPLICATIONS: None. CONDITION: Stable. INDICATIONS: 35 y/o at 39 3/7 wga presented to clinic this morning with contractions and had membranes stripped at 3cm. Afterwards, contractions continued and presented to labor and delivery for evaluation approximately 3 hours later at which time she was 3-4cm. Plan was to macrina her for 1-1.5 hours and recheck however after approximately 1.5 hours she felt the urge to push and was found to be complete with membranes intact. FINDINGS: A viable female infant, weight pending with Apgars of 9 and 9 at 1 and 5 minutes respectively. SPECIMEN: Cord blood OPERATIVE REPORT: The patient progressed to 10 cm, 100% effaced and +2 station, and initially involuntarily pushed over intact perineum without anesthesia and membranes intact to deliver head of viable female infant, weight and Apgars as above. Head of delivered in CHAGO position at which time membranes were ruptured. Nuchal cord was present and delivered through. Body and shoulders then were delivered without difficulty. was delivered to maternal abdomen and nursing staff. Delayed cord clamping was performed for 60 seconds. Cord was clamped and cut. Cord blood was obtained. Placenta delivered spontaneously intact with 3-vessel cord. IM oxytocin and fundal massage were given for excellent hemostasis as IV site had not yet been placed. Vagina, cervix, perineum, and placenta were inspected. A second degree laceration was noted and repaired using 3-0 Vicryl after local anesthesia was applied. Sponge and needle counts correct x2. No sponges were left behind. Mother and stable in immediate period. [facility] [place] Vaginal Delivery Charge Vaginal Delivery Codes: 77574 global code for the antepartum, delivery, and post- Delivery Type Details: and 2nd Degree LAC
[2021-05-23] MEDS ORDERED: DIPHTHERIA/TETANUS/PERTUSSIS 0.5 ML SYR/VIAL IM ONE (15:05)
[2021-05-23] MEDS ORDERED: OXYTOCIN 10 UNITS/ML VIAL IM ONE (15:05)
[2021-05-23] MEDS ORDERED: BENZOCAINE 20% AER SPR 82.5 GM CAN EXT PRN (15:05)
[2021-05-23] MEDS ORDERED: SUPERCREAM 0.870% 15 GM JAR EXT PRN (15:05)
[2021-05-23] MEDS ORDERED: bisacodyL 10 MG SUPP PR PRN (15:05)
[2021-05-23] MEDS ORDERED: HYDROCORTISONE ACETATE 25 MG SUPP PR PRN (15:05)
[2021-05-23] MEDS: IBUPROFEN 600 MG TAB PO PRN ×2 (16:39→21:23)
[2021-05-23] MEDS: ACETAMINOPHEN 325 MG TAB PO PRN (19:39)
[2021-05-23] MEDS: DOCUSATE SODIUM 100 MG CAP PO SCH (21:20)
[2021-05-24] MEDS: ACETAMINOPHEN 325 MG TAB PO PRN ×3 (01:05→16:39)
[2021-05-24] MEDS: IBUPROFEN 600 MG TAB PO PRN ×3 (03:05→13:47)
--- NOTE | 2021-05-24 05:54 | Obstetrical Progress Note ---
Date of Service <Jazmín Rivera MD - Last Filed: 05/24/21 06:32> May 24, 2021 Assessment & Plan <Jazmín Rivera MD - Last Filed: 05/24/21 06:32> (1) Vaginal delivery: 35 yo , complicated by gHTN, now PPD1 from at 39wk3d -May d/c home today if improves -Vitals reviewed- HDS, afebrile -Blood type A+, GBS-, Rubella immune -Encourage ambulation -Pain control with ibuprofen, acetaminophen PRN -F/u in 6 weeks with OB <Britt Robles MD - Last Filed: 05/24/21 08:43> (1) Vaginal delivery: Subjective <Jazmín Rivera MD - Last Filed: 05/24/21 06:32> Ambulation: ambulating normally Voiding: no voiding problems Passing Gas:: No Diet Tolerance:: regular diet Lochia:: Moderate Feeding Type:: breast feeding Current Pain Level(1-10): 0 Pt feels well overall, no acute complaints or distress. Report some soreness relieved by pain medication. Having some difficulties with latch. Review of Systems Denies fevers/chills. Denies dyspnea, cough. Denies chest pain. Denies breast pain or discharge. Denies dysuria. Denies headache. Denies back pain. Physical Exam <Jazmín Rivera MD - Last Filed: 05/24/21 06:32> General: Alert, oriented, no acute distress Cardiac: Regular rate and rhythm, normal S1, S2. No murmurs appreciated. Respiratory: Clear to auscultation b/l with good air flow entry, symmetric chest rise and fall. No wheezes or crackles. No increased work of breathing or accessory muscle use Abdomen: Soft, nontender, nondistended. Fundus firm and palpable at 1 cm below umbilicus. No guarding or rebound. Skin: No rashes or lesions Extremities: No lower extremity edema, erythema or swelling. Negative Neil's sign b/l. Results & Data ([facility]) <Jazmín Rivera MD - Last Filed: 05/24/21 06:32> Vital Signs (Past 12 Hours) Vital Signs Temp Pulse Resp BP 05/23/21 23:40 36.8 C 65 18 106/70 05/23/21 19:30 37.4 C 79 18 128/81 <Britt Robles MD - Last Filed: 05/24/21 08:43> Co-Signing Physician Notes Resident Physician Supervision Note: I interviewed and examined the patient. Discussed with Dr. Rivera and agree with findings and plan as documented in the note. Any exceptions or clarifications are listed here: PP1 s/p , correction - prior complicated by gHTN, not current. Meeting all milestones. Doing better w/ this time however still some difficulty with latch, if able to latch well today desires dc home but will stay if not Documented By: Britt Robles MD Resident Activity Tracking <Jazmín Rivera MD - Last Filed: 05/24/21 06:32> Resident Involvement: Resident Care Provided Care Provided: OB Delivery
[2021-05-24] MEDS ORDERED: PRENATAL VITAMIN 1 TAB PO SCH (08:00)
[2021-05-24] MEDS: DOCUSATE SODIUM 100 MG CAP PO SCH (08:07)
--- NOTE | 2021-05-24 08:20 | Obstetrical Progress Note ---
Date of Service May 24, 2021 Subjective Ambulation: ambulating normally Voiding: no voiding problems Passing Gas:: Yes Diet Tolerance:: regular diet Lochia:: Small Feeding Type:: breast feeding Current Pain Level(1-10): 0 Pt doing well overall, no acute complaints or distress. Pain well controlled with medication. Review of Systems Denies fever/chills. Denies dyspnea, cough. Denies chest pain. Denies breast pain or discharge. Denies dysuria. Denies headache. Denies back pain. Physical Exam General: Alert, oriented, no acute distress Cardiac: Regular rate and rhythm, normal S1, S2. No murmurs noted. Respiratory: Clear to auscultation b/l with good air flow entry, symmetric chest rise and fall. No wheezes or crackles. No increased work of breathing or accessory muscle use. Abdomen: Soft, nontender, nondistended. Fundus firm and palpable at cm below umbilicus. Surgical incision clean, dry and intact without erythema, warmth or drainage. No guarding or rebound. Skin: No rashes or lesions Extremities: Warm, dry and well-perfused with capillary refill <2s b/l. No lower extremity edema, erythema or swelling. Negative Neil's sign b/l. Results & Data ([facility]) Vital Signs (Past 12 Hours) Vital Signs Temp Pulse Resp BP 05/23/21 23:40 36.8 C 65 18 106/70
[2021-05-24] MEDS ORDERED: bisacodyL 5 MG TABEC PO SCH (20:00)
== END 2021-05-24 18:15 | disposition home or self-care (01) | DRG 807 ==
LOC: OPB 12:04 → 4S1 12:06 → 4S2 17:26

== ENCOUNTER 2021-05-27 13:24 | Observation (INO) ==
[2021-05-27] MEDS ORDERED: LABETALOL HCL IV 5 MG/ML 20ML IV ONE ×2 (14:04→14:15)
[2021-05-27 14:08] LABS: Basophils # (auto) 0.02 K/uL (0-0.2); Basophils % (auto) 0.3 %; Eosinophils # (auto) 0.15 K/uL (0-0.5); Eosinophils % (auto) 2.1 %; Hematocrit (blood only) 36.2 % (37-47); Immature Granulocytes # (auto) 0.16 K/uL (0.00-0.02); Immature Granulocytes % (auto) 2.2 %; Lymphocytes # (auto) 1.66 K/uL (1.2-3.4); Lymphocytes % (auto) 22.9 %; Mean Corpuscular Hemoglobin 30.2 pg (25-34); Mean Platelet Volume 10.2 fL (7.4-10.4); Monocytes % (auto) 4.1 %; Neutrophils # (auto) 4.96 K/uL (1.4-6.5); Neutrophils % (auto) 68.4 %; Platelet Count 250 K/uL (130-400); RDW Coefficient of Variation 13.7 % (11.5-14.5); RDW Standard Deviation 45.2 fL (36.4-46.3); Red Blood Count 3.98 M/uL (4.2-5.4); White Blood Count 7.25 K/uL (4.8-10.8)
[2021-05-27] MEDS ORDERED: LABETALOL HCL IV 5 MG/ML 20ML IV STA (14:19)
--- NOTE | 2021-05-27 14:19 | History & Physical Report ---
Date of Service May 27, 2021 Assessment & Plan (1) Severe preeclampsia: Plan: Presumed severe preeclampsia based on symptoms, BP. Labs pending. Treating with IV antihypertensive now, and Mag to be started. Permission is being sought for FOB and baby to be with her during the now-certain 24 hour hospital stay to facilitate . OK to eat regular diet and can use hat for I/O monitoring at this time. History of Present Illness Chief Complaint: High BP and feeling "off" at home Primary Care Provider: Sheila Joshi, DO 35yo at PPD#4 from [facility]. Patient called the o/c MD with complaint of feeling "off" at home, just a nonspecific feeling of malaise, with some palpitations and chest "flutters" also noted. She had her BP taken at home and was 150s / 90s for two checks. I asked her to come to L&D for evaluation. She was hesitant initially, due to pandemic risks (both possible exposure of herself and if she came in, and discomfort with the knowledge she would not be able to bring her or spouse as visitors into the hospital at this time and this might result in needing to temporarily formula feed). She denied WHITE, RUQ pain, vision changes or increased edema. 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 After rechecking her BP one further time, following 5 minutes of seated rest, she continued to have 150s/100 BP and was willing to come for evaluation. On arrival, initial BP is 187/98. Patient has no change in symptoms. She does not have significant edema. At the time I arrive to the bedside, she is having an IV placed in anticipation of giving 20mg IV labetalol which I have just ordered verbally, so exam was somewhat limited to allow nursing staff access to perform their tasks. Interestingly, the med order displayed as 5mg rather than 20mg when it came over to the nurses, so they started with that dose and then came to me to confirm the remaining amount to be given. After that first 5mg IV, her BP dropped to 128/85, so the remainder was held at this time. Notably, the antecedent was conceived with ART to include letrozole, ovidrel and timed intercourse with SGFC. Bright bowel was seen on one ultrasound but not reproduced on future ultrasounds. Patient did have gestational HTN in a prior but not in this recent one. Allergies Allergy/AdvReac Type Severity Reaction Status Date / Time No Known Drug Allergies Allergy Verified 05/23/21 08:47 Home Medications Medication Instructions Recorded Confirmed Type prenat.vits,yohannes,[id number]-cnpdd 1 tab PO DAILY 02/11/19 05/23/21 History Past Med/Surg History Medical History Anxiety Astigmatism Gestational [-induced] hypertension without significant proteinuria, third trimester Mastitis Situational hypertension Varicella Surgical History H/O cervical biopsy H/O oral surgery Family History Sister Anxiety Depression Adela's thyroiditis Father Dementia Mother Hypertension Denies family history of Ovarian cancer Prostate cancer Myocardial infarction Breast cancer Colorectal cancer Social History Smoking Status: Never smoker Second Hand Exposure: No; Hx Alcohol Use: Yes Hx Substance Use: No Preferred Language: Azeri Visual Impairment: No Limitations Hearing Ability: Normal 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 Beliefs That Will Affect Care: None marital status: marital status details: Johnathon Doran (34) [phone] Current Living Situation: Spouse Current Living Situation Comment: lives with spouse and daughter current occupational status: employed 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 Feels Safe at Home: Yes Dental Care, Regularly: Yes Physical Activity Frequency: Does not Exercise Assistive Devices: None Physical Exam Constitutional: WD/WN, vitals as above Eyes: PERRL, conjunctivae normal, anicteric sclerae ENMT: external ear and nose normal, oropharynx normal Neck: supple Respiratory: normal respiratory effort and able to speak in complete sentences; no respiratory distress Cardiovascular: Rate/Rhythm: regular rate and regular rhythm Gastrointestinal (Abdomen): Gravid / AGA, nontender Musculoskeletal: no cyanosis or clubbing, extremities motor strength 5/5 Skin: no rashes, warm and dry Neurologic: patellar DTR's 2+ bilat, sensation intact Psychiatric: A+Ox3, euthymic affect Lymphatic: no cervical or axillary lymphadenopathy Results & Data Results & Data ([facility]) Vital Signs (Past 12 Hours) Vital Signs Pulse BP 05/27/21 13:53 81 187/98 H 05/27/21 13:36 90 178/107 H Laboratory Results Labs ordered and pending at this time. Code Status & VTE Plan VTE Prophylaxis Plan VTE Prophylaxis will be ordered: Yes PG Care Time/CCT Total # of Minutes Spent Total Time Spent with Patient: Total time spent is greater than 50% in coordination of care (as documented) at patient's floor/unit and/or counseling patient: Coding Level of Care Code 87331 Initial Inpt Care Lvl 2 Diagnoses Severe preeclampsia O14.10
[2021-05-27 14:24] LABS: Alanine Aminotransferase 21 (12-78); Albumin Level 2.9 gm/dl (3.4-5.0); Aspartate Aminotransferase 16 U/L (15-37); BUN Creatinine Ratio 11.4 (10-20); Blood Urea Nitrogen 7 mg/dl (7-18); Calcium 9.3 mg/dl (8.5-10.1); Carbon Dioxide 26 mmol/L (21-32); Chloride 113 mmol/L (98-107); Est GFR (African American) 134.9 ml/min; Est GFR (Non-African American) 116.4 ml/min; Glucose 93 mg/dl (70-99); Potassium 3.6 mmol/L (3.5-5.1); Sodium 143 mmol/L (136-145); Uric Acid 4.6 mg/dl (2.6-7.2)
[2021-05-27 14:27] LABS: Albumin Globulin Ratio 0.7 (0.9-2); Alkaline Phosphatase 89 U/L (45-117); Bilirubin,Total 0.2 mg/dl (0.2-1); Total Protein 6.9 gm/dl (6.4-8.2)
[2021-05-27] MEDS ORDERED: MAG SULFATE 4GM BOLUS FROM BAG IV ONE (14:27)
[2021-05-27] MEDS ORDERED: MAGNESIUM SULFATE / WTR 40 GM/1,000 ML BAG IV SCH (14:30)
[2021-05-27] MEDS ORDERED: MAGNESIUM SULFATE 40GM / WTR 1,000 ML BAG IV ONE (14:36)
[2021-05-27 14:47] LABS: Creatinine Urine Random < 13.0 mg/dl; Total Protein Urine Random < 5.0 mg/dl (0-11.9)
[2021-05-27 14:48] LABS: Mean Corpuscular Hgb Conc 33.1 g/dL (32-36)
[2021-05-27] MEDS: LACTATED RINGER'S 1,000 ML IV SCH (14:50)
--- NOTE | 2021-05-27 15:32 | Communication Note ---
Date of Service: May 27, 2021 Labs reviewed, all normal. Discussed with patient at bedside approx 1/2 hour ago. Reviewed that based on severe level HTN and symptoms, would recommend management as severe preeclampsia with 24hr magnesium therapy to prevent sequelae of worsening disease. IV antihypertensive x1 given, has not needed repeat thus far. Symptoms unchanged. Patient will be joined by her and infant at permission of administration. She is in agreement with plan.
[2021-05-27] MEDS ORDERED: IBUPROFEN 600 MG TAB PO ONE (15:34)
[2021-05-27] MEDS: ACETAMINOPHEN 325 MG TAB PO PRN (19:29)
[2021-05-27] MEDS: IBUPROFEN 600 MG TAB PO PRN (23:14)
[2021-05-28] MEDS: LACTATED RINGER'S 1,000 ML IV SCH (02:32)
[2021-05-28] MEDS: ACETAMINOPHEN 325 MG TAB PO PRN ×2 (06:16→14:28)
--- NOTE | 2021-05-28 07:38 | Obstetrical Progress Note ---
Date of Service May 28, 2021 Assessment & Plan (1) Severe preeclampsia: Plan: She has begun to exhibit signs and symptoms of magnesium toxicity, though it is mild and her resp rate is still 22 with good O2 saturation. Explained to the patient we will stop magnesium. Her BP is elevated for the first time since admission now, but this is almost certainly due to anxiety rather than worsening of preeclampsia given her history and physical at this time. Stat Mag level sent, mag off, patient aware that renal clearance should gradually lower her mag level safely. 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 She denies SOB. Physical Exam Constitutional: WD/WN, vitals as above ENMT: external ear and nose normal, oropharynx normal Neck: trachea midline, no thyromegaly Respiratory: normal respiratory effort and able to speak in complete sentences; no respiratory distress and does not use accessory muscles Cardiovascular: RRR, no murmur, no edema Gastrointestinal (Abdomen): normal bowel sounds, soft, nontender, no hepatosplenomegaly (No RUQ ttp, liver edge nonpalp) Neurologic: Patellar DTR's 1+ which is notably less than on arrival. She was documented as 2+ yesterday but they were almost 3+, and this is a marked difference. Psychiatric: Patient is fairly anxious right now. Results & Data ([facility]) Vital Signs (Past 12 Hours) Vital Signs Temp Pulse Resp BP Pulse Ox 05/28/21 07:21 95 H 97 05/28/21 07:16 98 H 97 05/28/21 07:11 104 H 97 05/28/21 07:06 97.9 F 112 H 22 144/99 H 97 05/28/21 07:00 99 H 98 05/28/21 06:55 100 H 98 05/28/21 06:50 97 H 97 05/28/21 06:45 93 H 97 05/28/21 06:40 91 H 97 05/28/21 06:35 89 97 05/28/21 06:30 95 H 97 05/28/21 06:25 94 H 97 05/28/21 06:20 94 H 97 05/28/21 06:15 88 96 05/28/21 06:10 89 97 05 06:08 16 05/28/21 06:05 82 92 05 06:02 89 129/76 05 06:00 99 H 97 05 05:59 75 91 05 05:55 74 92 05 05:50 73 92 05 05:45 79 94 05 05:40 72 92 05 05:35 73 92 05 05:30 76 93 05 05:25 88 96 05 05:20 76 94 05 05:15 85 96 05 05:12 97.9 F 16 05/28/21 05:10 77 98 05/28/21 05:05 77 93 05/28/21 05:04 76 90 05 05:02 83 107/73 05/28/21 05:00 79 97 05 04:55 78 94 05/28/21 04:54 79 91 05 04:50 79 93 05 04:45 77 93 05 04:40 73 94 05 04:35 85 93 05 04:30 81 96 05 04:25 73 94 05 04:20 73 94 05 04:15 74 94 05 04:12 16 05/28/21 04:10 72 94 05 04:05 72 94 05 04:02 90 129/76 05 04:00 76 93 05 03:55 76 94 05 03:50 73 94 05 03:45 79 97 05 03:40 80 96 05 03:35 87 96 05 03:29 89 97 05 03:24 84 98 05 03:19 87 96 05 03:14 82 97 05 03:09 96 H 97 05 03:05 18 05 03:04 85 97 05 03:02 90 124/90 05/28/21 02:59 88 97 05/28/21 02:54 88 97 05/28/21 02:49 86 97 05/28/21 02:44 97 H 97 05/28/21 02:38 18 05/28/21 02:34 89 98 05/28/21 02:29 95 H 98 05/28/21 02:24 90 97 05/28/21 02:19 89 96 05/28/21 02:14 83 97 05/28/21 02:09 78 97 05/28/21 02:08 16 05/28/21 02:04 80 96 05/28/21 02:02 80 119/75 05/28/21 01:59 77 95 05/28/21 01:58 81 94 05/28/21 01:54 97 H 96 05/28/21 01:49 75 94 05/28/21 01:44 79 97 05/28/21 01:39 76 95 05/28/21 01:34 90 97 05/28/21 01:29 100 H 97 05/28/21 01:24 88 98 05/28/21 01:19 80 95 05/28/21 01:14 81 97 05/28/21 01:13 16 05/28/21 01:09 81 97 05/28/21 01:04 76 97 05/28/21 01:02 78 111/68 05/28/21 00:59 81 99 05/28/21 00:58 83 93 05/28/21 00:51 82 95 05/28/21 00:46 82 97 05/28/21 00:41 82 97 05/28/21 00:36 80 96 05/28/21 00:31 66 97 05 00:26 71 98 05 00:21 67 98 05/28/21 00:16 72 97 05/28/21 00:11 72 98 05 00:09 18 05/28/21 00:06 73 97 05/28/21 00:02 71 115/77 05/28/21 00:01 70 98 05/27/21 23:56 72 98 05/27/21 23:51 87 98 05/27/21 23:46 62 96 05/27/21 23:41 60 96 05/27/21 23:36 63 97 05/27/21 23:31 78 97 05/27/21 23:26 79 98 05/27/21 23:19 70 97 05/27/21 23:14 77 98 05/27/21 23:09 73 98 05/27/21 23:05 97.7 F 18 05/27/21 23:04 71 97 05/27/21 23:02 71 123/82 05/27/21 22:59 72 98 05/27/21 22:54 70 97 05/27/21 22:49 69 98 05/27/21 22:44 68 98 05/27/21 22:39 76 98 05/27/21 22:34 68 97 05/27/21 22:29 70 98 05/27/21 22:24 66 98 05/27/21 22:19 70 97 05/27/21 22:14 88 97 05/27/21 22:10 16 05/27/21 22:09 73 97 05/27/21 22:04 74 97 05/27/21 22:02 75 125/81 05/27/21 21:59 73 96 05/27/21 21:54 72 95 05/27/21 21:49 76 98 05/27/21 21:44 72 97 05/27/21 21:40 80 92 05/27/21 21:39 80 99 05/27/21 21:29 72 96 05/27/21 21:24 77 97 05/27/21 21:19 71 96 05/27/21 21:14 72 96 05/27/21 21:09 69 16 97 05/27/21 21:04 73 96 05/27/21 21:02 75 120/78 05/27/21 20:59 75 97 05/27/21 20:54 79 97 05/27/21 20:49 77 97 05/27/21 20:44 74 97 05/27/21 20:39 75 97 05/27/21 20:34 75 98 05/27/21 20:29 74 99 05/27/21 20:24 78 98 05/27/21 20:19 79 98 05/27/21 20:14 77 98 05/27/21 20:09 86 97 05/27/21 20:04 82 98 05/27/21 20:03 18 05/27/21 20:02 88 130/75 05/27/21 19:59 83 98 05/27/21 19:54 78 98 05/27/21 19:49 82 99 05/27/21 19:44 84 100 05/27/21 19:37 81 98 05/27/21 19:32 85 98 PG Care Time/CCT Total # of Minutes Spent Total Time Spent with Patient: Total time spent is greater than 50% in coordination of care (as documented) at patient's floor/unit and/or counseling patient: Coding Level of Care Code None Diagnoses Severe preeclampsia O14.10
--- NOTE | 2021-05-28 08:42 | Communication Note ---
Date of Service: May 28, 2021 Mag level resulted at 5.7, below where toxicity is expected. However patient is noting clinical improvement in both her visual focus and her muscle strength. Her BP is acceptable, labs normal, minimal suspicion at this time that she requires magnesium to prevent eclampsia. Will allow gradual clearance of mag and observation continues.
[2021-05-28] MEDS: IBUPROFEN 600 MG TAB PO PRN (09:56)
--- NOTE | 2021-05-28 17:06 | Obstetrical Progress Note ---
Date of Service May 28, 2021 Assessment & Plan (1) Severe preeclampsia: Plan: Lengthy discussion with patient and FOB at bedside along with Jayla Thakur RN. Patient feels that her symptoms have all resolved now that magnesium is wearing off. She is, however, becoming increasingly concerned about going home without "as needed" meds for blood pressure. She was offered the option to remain here for observation overnight, however she feels she prefers to go home as she thinks she'll feel more relaxed once she's in her home environment. She just feels that it would be easier to relax if she knew she had a medicine to take if her blood pressure were to go up. We discussed that that isn't how antihypertensives are used in the outpatient setting; she needs to either be safe to go home without meds (I think she is) or stay for observation to see if chronic meds are warranted (she's not willing). We discussed that the entire episode for which she was admitted could be consistent with either of two possible disease states: preeclampsia or anxiety. Telling these apart can be difficult, and management has to be based on conservative choices that protect that patient against the worst possible outcomes - both here in the hospital and once she goes home. Her initial complaint when she called me from home was palpitations and high BP taken on a home cuff multiple times. She very quickly normalized her BP here once she felt safely protected; the antihypertensive dose she received was too small to be fully responsible for her immediate and long-lasting improvement, and magnesium is not strictly speaking an antihypertensive. As she has become anxious again about being at home, her BP has increased again. Her labs were always normal. The overall picture actually suggests an anxiety episode; however, it was safest to admit the patient for management of "atypical" severe preeclampsia based on BP and her symptoms on presentation. She was normotensive throughout the majority of her visit here, and did not tolerate even therapeutic doses of magnesium without symptoms of overload, further arguing against true severe preeclampsia. Thinking about what is safest as she goes home, I have to consider that the risk of putting her on chronic antihypertensive meds and "bottoming out" her pressure is significant, while the consequences of mild HTN values caused by anxiety at home should be minimal to none. Missing a progression of preeclampsia to eclampsia is also dangerous, but it seems highly unlikely that will happen, and even more unlikely that she would fail to notice and call us as symptoms progressed. Thus I instructed her, with BHARGAVI listening and agreeing to support this plan, to observe for symptoms of preeclampsia worsening but NOT to check her blood pressure at home. She is to notify me of headache that does not improve 60min after a dose of tylenol, swelling that obscures the currently- visible tendons in her feet, RUQ pain that is persistent and severe, or vision changes, as well as any stroke-like or seizure-like symptoms. She was encouraged to contact us early with questions or uncertainty, and not to try to manage uncertainty at home. She was repeatedly discouraged from self-checking BP. She expresses understanding and acceptance of this plan. She understands the office will contact her to arrange outpatient BP follow up this week, and that antihypertensive meds will not be prescribed for use "as needed" at home in the meantime. Admission and Anticipated Discharge Date Admission Date: May 27, 2021 Subjective Discussion at bedside with patient, RIMA BURK. Patient has no WHITE, vision changes, RUQ pain or edema. She does, however, have a lot of anxiety about going home and asks repeatedly to be given blood pressure medicine to be taken "just in case it goes high again." Physical Exam Constitutional: WD/WN, vitals as above (BP has been low-HTN range last few hours) Cardiovascular: RRR, no murmur, no edema (foot tendons visible and palpable. Thin habitus and no edema evident at all) Gastrointestinal (Abdomen): No RUQ ttp, no HSM Neurologic: DTR 2+ bilateral patellae, increased back to normal as compared to when it was suppressed earlier this morning. Psychiatric: Continued anxiety. She does discuss that when she came in she had been told by her sister that her symptoms "could be a dissecting aortic aneurysm" and that other anxiety-provoking statements are being made at home. She is also worried about whether she is going to be safe at home compared to staying in hospital for observation. Results & Data ([facility]) Vital Signs (Past 12 Hours) Vital Signs Temp Pulse Resp BP Pulse Ox 05/28/21 16:39 81 98 05/28/21 16:34 82 98 05/28/21 16:29 85 97 05/28/21 16:24 80 97 05/28/21 16:19 89 96 05/28/21 16:14 91 H 97 05/28/21 16:02 84 145/86 H 96 05/28/21 15:57 80 97 05/28/21 15:52 76 96 05/28/21 15:47 77 96 05/28/21 15:42 80 97 05/28/21 15:37 57 L 96 05/28/21 15:32 59 L 96 05/28/21 15:27 60 96 05/28/21 15:22 61 96 05/28/21 15:17 67 97 05/28/21 15:12 61 95 05/28/21 15:07 69 96 05/28/21 15:02 78 141/88 H 97 05/28/21 14:57 73 96 05/28/21 14:52 74 97 05/28/21 14:47 73 96 05/28/21 14:42 74 95 05/28/21 14:37 98.1 F 78 18 96 05/28/21 14:32 88 98 05/28/21 14:27 85 97 05/28/21 14:22 80 96 05/28/21 14:17 77 97 05/28/21 14:12 84 96 05/28/21 14:07 85 97 05/28/21 14:02 80 136/79 98 05/28/21 13:57 84 96 05/28/21 13:52 71 96 05/28/21 13:47 86 94 05/28/21 13:42 81 95 05/28/21 13:37 85 97 05/28/21 13:32 82 96 05/28/21 13:27 82 95 05/28/21 13:22 82 96 05/28/21 13:17 84 96 05/28/21 13:12 80 97 05/28/21 13:07 85 93 05/28/21 13:02 79 143/93 H 97 05/28/21 12:57 91 H 97 05/28/21 12:52 90 95 05/28/21 12:47 88 96 05/28/21 12:42 76 95 05/28/21 12:37 79 97 05/28/21 12:33 83 91 05/28/21 12:32 85 97 05/28/21 12:27 90 96 05/28/21 12:22 87 97 05/28/21 12:17 82 98 05/28/21 12:12 195 H 96 05/28/21 12:04 88 97 05/28/21 12:02 98.1 F 86 20 142/90 H 05/28/21 11:59 80 96 05/ 11:54 82 97 05/21 11:49 78 97 05/28/21 11:44 80 97 05/ 11:39 96 H 97 05/28/21 11:34 80 95 05 11:29 82 97 05 11:24 61 96 05 11:19 68 95 05 11:14 78 97 05 11:09 64 97 05 11:04 66 98 05 11:02 78 115/65 05/28/21 10:59 68 95 05 10:54 72 94 05/28/21 10:49 63 96 05 10:44 63 96 05/28/21 10:39 62 96 05/28/21 10:34 62 95 05/28/21 10:29 63 96 05 10:24 64 96 05/28/21 10:19 66 96 05 10:14 82 98 05/28/21 10:09 62 93 05/28/21 10:04 69 94 05/28/21 10:02 75 139/81 05/28/21 09:59 70 94 05/28/21 09:54 77 95 05/28/21 09:49 77 96 05/28/21 09:44 76 97 05/28/21 09:39 78 96 05/28/21 09:34 81 96 05 09:29 83 96 05 09:24 84 96 05 09:19 83 97 05 09:14 85 96 05 09:09 77 97 05 09:04 80 97 05 09:02 95 H 139/90 05 08:59 88 98 05 08:51 74 95 05 08:46 85 97 05 08:41 91 H 98 05 08:36 75 95 05 08:31 77 97 05/28/21 08:26 80 139/92 96 05/28/21 08:21 80 96 05/28/21 08:16 78 95 05/28/21 08:11 88 94 05/28/21 08:06 82 96 05/28/21 08:02 94 H 144/88 H 05/28/21 08:01 95 H 97 05/28/21 07:56 85 96 05/28/21 07:51 85 97 05/28/21 07:46 82 97 05/28/21 07:41 91 H 97 05/28/21 07:36 91 H 98 05/28/21 07:31 87 97 05/28/21 07:26 88 97 05/28/21 07:21 95 H 97 05/28/21 07:16 98 H 97 05/28/21 07:11 104 H 97 05/28/21 07:06 97.9 F 112 H 22 144/99 H 97 05/28/21 07:05 22 05/28/21 07:00 99 H 98 05/28/21 06:55 100 H 98 05/28/21 06:50 97 H 97 05/28/21 06:45 93 H 97 05/28/21 06:40 91 H 97 05 06:35 89 97 05 06:30 95 H 97 05/28/21 06:25 94 H 97 05/28/21 06:20 94 H 97 05/28/21 06:15 88 96 05/28/21 06:10 89 97 05/28/21 06:08 16 05/28/21 06:05 82 92 05 06:02 89 129/76 05 06:00 99 H 97 05 05:59 75 91 05 05:55 74 92 05 05:50 73 92 05 05:45 79 94 05 05:40 72 92 05 05:35 73 92 05 05:30 76 93 05 05:25 88 96 05 05:20 76 94 05 05:15 85 96 05 05:12 97.9 F 16 05/28/21 05:10 77 98 05 05:05 77 93 05/28/21 05:04 76 90 05/28/21 05:02 83 107/73 05/28/21 05:00 79 97 05/28/21 04:55 78 94 05/28/21 04:54 79 91 05/28/21 04:50 79 93 05/28/21 04:45 77 93 Laboratory Results Laboratory Results - last 24 hr 05/28/21 07:44 Magnesium (Sulf Ther) 5.7 PG Care Time/CCT Total # of Minutes Spent Total Time Spent with Patient: Total time spent is greater than 50% in coordination of care (as documented) at patient's floor/unit and/or counseling patient: Coding Level of Care Code D/C DAY MANAGEMENT >30 MINS Diagnoses Severe preeclampsia O14.10
--- NOTE | 2021-05-28 17:15 | Discharge Summary ---
Date of Service May 28, 2021 Admission HPI Per Admitting Provider 35yo at PPD#4 from [facility]. Patient called the o/c MD with complaint of feeling "off" at home, just a nonspecific feeling of malaise, with some palpitations and chest "flutters" also noted. She had her BP taken at home and was 150s / 90s for two checks. I asked her to come to L&D for evaluation. She was hesitant initially, due to pandemic risks (both possible exposure of herself and if she came in, and discomfort with the knowledge she would not be able to bring her or spouse as visitors into the hospital at this time and this might result in needing to temporarily formula feed). She denied WHITE, RUQ pain, vision changes or increased edema. 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 After rechecking her BP one further time, following 5 minutes of seated rest, she continued to have 150s/100 BP and was willing to come for evaluation. On arrival, initial BP is 187/98. Patient has no change in symptoms. She does not have significant edema. At the time I arrive to the bedside, she is having an IV placed in anticipation of giving 20mg IV labetalol which I have just ordered verbally, so exam was somewhat limited to allow nursing staff access to perform their tasks. Interestingly, the med order displayed as 5mg rather than 20mg when it came over to the nurses, so they started with that dose and then came to me to confirm the remaining amount to be given. After that first 5mg IV, her BP dropped to 128/85, so the remainder was held at this time. Notably, the antecedent was conceived with ART to include letrozole, ovidrel and timed intercourse with SGFC. Bright bowel was seen on one ultrasound but not reproduced on future ultrasounds. Patient did have g estational HTN in a prior but not in this recent one. Hospital Course (1) Severe preeclampsia: Patient admitted for IV Magnesium, and received 5mg Labetalol IV x1. She never had WHITE, RUQ pain, vis changes or edema. She rapidly normalized her blood pressure. After approx 12 hours of IV magnesium her level was 5.7 and the patient was c/o severe weakness, blurred vision, and being uncomfortable with these sensations. Magnesium was stopped, and her symptoms gradually waned until she felt normal again. In the last few hours of her stay, the patient voiced increased anxiety and her BP increased again to the mild HTN range. Lengthy discussion with patient and FOB at bedside along with Jayla Thakur RN. Patient feels that her symptoms have all resolved now that magnesium is wearing off. She is, however, becoming increasingly concerned about going home without "as needed" meds for blood pressure. She was offered the option to remain here for observation overnight, however she feels she prefers to go home as she thinks she'll feel more relaxed once she's in her home environment. She just feels that it would be easier to relax if she knew she had a medicine to take if her blood pressure were to go up. We discussed that that isn't how antihypertensives are used in the outpatient setting; she needs to either be safe to go home without meds (I think she is) or stay for observation to see if chronic meds are warranted (she's not willing). We discussed that the entire episode for which she was admitted could be consistent with either of two possible disease states: preeclampsia or anxiety. Telling these apart can be difficult, and management has to be based on conservative choices that protect that patient against the worst possible outcomes - both here in the hospital and once she goes home. Her initial complaint when she called me from home was palpitations and high BP taken on a home cuff multiple times. She very quickly normalized her BP here once she felt safely protected; the antihypertensive dose she received was too small to be fully responsible for her immediate and long-lasting improvement, and magnesium is not strictly speaking an antihypertensive. As she has become anxious again about being at home, her BP has increased again. Her labs were always normal. The overall picture actually suggests an anxiety episode; however, it was safest to admit the patient for management of "atypical" severe preeclampsia based on BP and her symptoms on presentation. She was normotensive throughout the majority of her visit here, and did not tolerate even therapeutic doses of magnesium without symptoms of overload, further arguing against true severe preeclampsia. Thinking about what is safest as she goes home, I have to consider that the risk of putting her on chronic antihypertensive meds and "bottoming out" her pressure is significant, while the consequences of mild HTN values caused by anxiety at home should be minimal to none. Missing a progression of preeclampsia to eclampsia is also dangerous, but it seems highly unlikely that will happen, and even more unlikely that she would fail to notice and call us as symptoms progressed. Thus I instructed her, with FOB listening and agreeing to support this plan, to observe for symptoms of preeclampsia worsening but NOT to check her blood pressure at home. She is to notify me of headache that does not improve 60min after a dose of tylenol, swelling that obscures the currently- visible tendons in her feet, RUQ pain that is persistent and severe, or vision changes, as well as any stroke-like or seizure-like symptoms. She was encouraged to contact us early with questions or uncertainty, and not to try to manage uncertainty at home. She was repeatedly discouraged from self-checking BP. She expresses understanding and acceptance of this plan. She understands the office will contact her to arrange outpatient BP follow up this week, and that antihypertensive meds will not be prescribed for use "as needed" at home in the meantime. Coding Level of Care Code None Diagnoses Severe preeclampsia O14.10
== END 2021-05-28 17:26 | disposition home or self-care (01) ==
LOC: OPB 13:24 → 4S1 13:24